=== PATIENT | male | born 1995 | race Caucasian/White ===

== ENCOUNTER → 2017-01-27 | Outpatient (CLI) | payer BC ==
[~2017-01-27] MED LIST: IOPAMIDOL (ISOVUE 370) 100 ML BTL IV ONE
== END ==
LOC: CIMAGING 10:24
PROVIDERS: ATTEND Physician Assistant Medical
DX: G44.84 Primary exertional headache (principal)
CPT/HCPCS: 70496-PO; Q9967

== ENCOUNTER 2018-12-14 23:20 | Emergency (ER) | payer BC ==
[2018-12-14 23:28] VITALS: BP 138/73
--- NOTE | 2018-12-14 23:44 | EDPHY ---
General Time Seen by Provider: 12/14/18 23:33 Narrative: CLINICAL IMPRESSION: Right 5th digit laceration ASSESSMENT/PLAN: 23-year-old male presents to the emergency department with a laceration to the right 5th digit of the hand after cutting speaker equipment at home. Range of motion intact, distal 2 point discrimination intact, patient reports subjective numbness around laceration site. No evidence of flexor or extensor tendon injury. Tetanus reported up-to-date. Wound was anesthetized with digit block, repaired as per chart notes. Signs and symptoms of infection reviewed, warning signs return to ED sooner alignment discharge. DIFFERENTIAL DIAGNOSIS: includes but not limited to laceration of tendon or vascular structure, underlying fracture, laceration with retained FB ED PROCECURES: Laceration Repair Verbal consent obtained by patient. Risks discussed, including but not limited to infection, pain, retained foreign body, need for additional repair, poor cosmetic result, tendon damage, nerve damage, poor wound healing, vascular damage. Alternatives to repair discussed. [place] protocol used to establish correct patient, procedure, equipment, software support specialist, and site. Anesthesia obtained by digital block at the right 5th MCP joint. Anesthetized with 0.5% bupivacaine without epinephrine. Laceration location right 5th finger, length 1 cm, depth 2 mm, Repair type simple. Patient was prepped and draped in usual sterile fashion. Hemostasis achieved with direct pressure. Wound explored through full range of motion and entire depth of wound probed and visualized with gloved finger. No suspicion for nerve damage, tendon damage, underlying fracture, vascular damage, foreign body, or contamination. Area was cleansed with Shur-Clens and irrigated with sterile saline as per protocol. No foreign body or material removed. Repair method sutures. Three sutures placed. Well aligned, closely approximated. wound was dressed with bacitracin and Band-Aid. Patient tolerated well with no immediate complications. Wound care: Clean and dry x 24 hours, gently clean with soap and water, cover with topical antibiotic ointment/bandage. Suture/Staple removal: 7 Days CHIEF COMPLAINT: Laceration HPI: 23-year-old [id number] male presents to the emergency department with a right 5th finger laceration sustained on an [employer] knife while cutting equipment for a speaker system. Patient reports some numbness right around the laceration site itself. Full range of motion of the finger. Tetanus up-to- date. No other injuries. PAST MEDICAL HISTORY: None reported Pertinent Past Surgical History: None reported Social History: Works as a local EMT REVIEW OF SYSTEMS: All other systems negative Constitutional: No fever, no chills Musculoskeletal: No deformity, no joint pain Skin: Laceration to right 5th finger Neurological: No weakness, 2 point discrimination intact. PHYSICAL EXAM: General Appearance: Alert, oriented, appropriate for age, cooperative, NAD, well hydrated, non-toxic appearing, VSS, no hypoxia. Neurological: Alert and oriented x 3 Skin: 1 cm laceration to the lateral aspect of the right 5th finger distal to the PIP joint Musculoskeletal: Full range of motion of the finger. No clinical evidence of flexor or extensor tendon injury. Distal 2 point discrimination intact. MEDICAL DECISION MAKING: Patient was seen independently. Secondary supervising physician at time of evaluation was Dr. Coppola. Diagnosis: Right 5th finger laceration. New, requires workup Summary: See assessment and plan for summary of ED visit Patient Progress improved. - History Smoking Status: Never smoked - Objective Vital Signs: Initial Vital Signs Temperature (C) 36.8 C 12/14/18 23:26 Heart Rate 87 12/14/18 23:26 Respiratory Rate 16 12/14/18 23:26 Blood Pressure 138/73 H 12/14/18 23:26 O2 Sat (%) 98 12/14/18 23:26 O2 Delivery Mode Room Air Allergies/Adverse Reactions: No Known Allergies Allergy (Verified 12/14/18 23:26) Home Medications: Medication Instructions Recorded NK [No Known Home Meds] 12/14/18 Departure - Departure Disposition: Home, Routine, Self-Care Clinical Impression: Finger laceration Qualifiers: Encounter type: initial encounter Finger: little finger Damage to nail status: without damage Foreign body presence: without foreign body Laterality: right Qualified Code(s): S61.216A - Laceration without foreign body of right little finger without damage to nail, initial encounter Condition: Good Instructions: Finger Laceration (ED) Additional Instructions: DISCHARGE INSTRUCTIONS FROM YOUR DOCTOR Thank you for visiting our emergency department today. You were treated by a physician tax assistant today and your case was reviewed with our ED Attending physician. Please keep in mind that discharge from the emergency department does not mean that there is nothing wrong - it simply means that we have not identified an emergency condition that requires further evaluation or treatment in the hospital. You should always plan to follow up with primary care for re- evaluation of your condition in the next 2-3 days. If you have been referred to a specialist, please call as soon as possible (today or tomorrow) to schedule your follow up appointment at the appropriate time. PLEASE HAVE SUTURES/MEIR REMOVED IN 7 DAYS. YOU CAN RETURN TO THE EMERGENCY DEPARTMENT OR YOUR PRIMARY CARE FOR SUTURE/STAPLE REMOVAL. AVOID SUBMERGING SUTURES/MEIR UNDERWATER FOR PROLONGED PERIOD OF TIME UNTIL REMOVED. KEEP WOUND CLEAN AND DRY, COVER WITH ANTIBIOTIC OINTMENT AND BAND-AID. RETURN TO EMERGENCY DEPARTMENT FOR REDNESS, SWELLING, DISCHARGE, WARMTH TO THE SKIN, OR ANY OTHER CONCERNS FOR INFECTION. People present with illnesses and injuries in different ways, and it is always possible that we have missed something. You may always return for re-evaluation if symptoms worsen or if they are not improving or if you develop new/different symptoms. Again, thank you for choosing our emergency department. We hope that you feel better. Referrals: NONE *PRIMARY CARE P,. [Primary Care Provider] - As per Instructions
== END 2018-12-15 00:04 | disposition home or self-care (01) ==
PROC: 0HQFXZZ Repair Right Hand Skin, External Approach (ICD-10-PCS; principal; 2018-12-14)
DX: S61.216A Laceration without foreign body of right little finger without damage to nail, initial encounter (principal); W26.8XXA Contact with other sharp object(s), not elsewhere classified, initial encounter; Y92.009 Unspecified place in unspecified non-institutional (private) residence as the place of occurrence of the external cause